=== PATIENT | female | born 1955 | race Caucasian/White ===

== ENCOUNTER 2024-05-26 10:47 | Emergency (ER) | payer OTHER, MEDICARE, SELFPAY ==
[2024-05-26 11:05] VITALS: BP 132/88; PULSE 89; RESP 16; TEMP 36.7; O2SAT 95; BMI 27.4
--- NOTE | 2024-05-26 13:49 | ED_ITS ---
HPI - Animal Bite 2 General: Chief Complaint: Animal Bite Stated Complaint: cat bite on left hand Time Seen by Provider: 05/26/24 13:46 Source: patient Mode of arrival: ambulatory Limitations: no limitations History of Present Illness: 69-year-old female states that couple da ys ago her cat and dog got in a fight she tried to break it up states that the cat it bit her on the left hand and 1 small bite on the right hand. States she has had some swelling and redness mainly to the left hand. She denies any fevers has had mild pain. She is up-to-date on her tetanus states the cat is up-to-date on its rabies. Associated symptoms: Deny chills, fever(s) or headache(s) Related Data Previous Rx's Medication Instructions Recorded amoxicillin 500 mg-potassium 1 tab PO BID #14 tabs 05/26/24 clavulanate 125 mg tablet (Augmentin) Allergies Allergy/AdvReac Type Severity Reaction Status Date / Time No Known Allergies Allergy Verified 05/26/24 11:10 Review of Systems 2 Const: Denies: fever(s), chills, body aches or change in appetite ENMT: Denies: throat pain or dental pain Card: Denies: chest pain Resp: Denies: dyspnea GI: Denies: abdominal pain, nausea, vomiting or diarrhea Musc: Reports: extremity pain and extremity swelling; Denies: neck pain or back pain Skin/Breast: Reports: erythema; Denies: rash Neuro: Denies: headache(s) Physical Exam 2 Const: COMMON NORMALS: no acute distress, patient oriented x3 and healthy appearing HENMT: COMMON NORMALS: normocephalic and atraumatic HEAD & SCALP: n ormocephalic and atraumatic Neck/C-Spine: COMMON NORMALS: full ROM and supple Chest: COMMONS NORMALS: normal inspection of the chest Resp: COMMON NORMALS: normal respiratory effort Cardio: COMMON NORMALS: regular rate, regular rhythm and No murmurs present (Cardio) RATE: regular rate RHYTHM: regular rhythm Extremity: COMMON NORMALS: full ROM OTHER: Cat bite noted to left hand with some mild erythema to dorsum of the hand no drainage slightly warm to touch she has full range of motion of her hand no swelling erythema to the palmar surface Neuro: COMMON NORMALS: patient oriented x3, moves all extremities and no focal motor deficits Psych: COMMON NORMALS: mental status grossly normal, Normal thought process present and cooperative THOUGHT PROCESS: Normal thought process present Course 2 Vital Signs: Vital signs: Vital Signs Temperature 98.1 F 05/26/24 11:05 Pulse Rate 70 05/26/24 14:05 Respiratory Rate 16 05/26/24 11:05 Blood Pressure 133/89 05/26/24 14:05 Pulse Oximetry 97 05/26/24 14:05 Oxygen Delivery Me thod Room Air 05/26/24 14:05 MDM - Animal Bite Medical Decision Making Patient presents with a cat bite she has a mild cellulitis no signs of any severe infection blood work here is normal did give her dose of [address] her on Augmentin she is follow-up with her PCP she is return if she has worsening erythema she understands agrees to plan Medical Records I reviewed the patient's medical records. Lab Data I reviewed the patient's lab results. 05/26/24 13:23 05/26/24 13:23 Laboratory Results WBC 9.05 10^3/uL (3.29-11.43) 05/26/24 13:23 RBC 4.97 10^6/uL (3.85-5.65) 05/26/24 13:23 Hgb 14.20 g/dL (11.27-16.99) 05/26/24 13:23 Hct 45.2 % (36-47) 05/26/24 13:23 MCV 90.9 fl (85-98) 05/26/24 13:23 MCH 28.6 pg (27-33) 05/26/24 13:23 MCHC 31.4 g/dL (30-55) 05/26/24 13:23 RDW 14.7 % (12.1-15.1) 05/26/24 13:23 Plt Count 293 10^3/cmm (157-399) 05/26/24 13:23 MPV 9.7 fL (7.4-10.4) 05/26/24 13:23 Neut % (Auto) 53.8 % 05/26/24 13:23 Lymph % (Auto) 38.1 % 05/26/24 13:23 Taylor % (Auto) 6.1 % 05/26/24 13:23 Eos % (Auto) 1.2 % 05/26/24 13:23 Baso % (Auto) 0.4 % 05/26/24 13:23 Neut # (Auto) 4.86 10^3/uL (1.8-7.7) 05/26/24 13:23 Lymph # (Auto) 3.5 10^3/uL (0.8-4.8) 05/26/24 13:23 Taylor # (Auto) 0.6 10^3/uL (0.2-0.9) 05/26/24 13:23 Eos # (Auto) 0.1 10^3/uL (0.0-0.8) 05/26/24 13:23 Baso # (Auto) 0.0 10^3/uL (0.0-0.1) 05/26/24 13:23 Nucleated RBC % (auto) 0 % 05/26/24 13:23 Nucleated RBCs # 0.0 /100WBC 05/26/24 13:23 ESR 17 mm/hr (0-15) H 05/26/24 13:23 Sodium 140 mmol/L (136-145) 05/26/24 13:23 Potassium 4.2 mmol/L (3.5-5.1) 05/26/24 13:23 Chloride 103 mmol/L (98-107) 05/26/24 13:23 Carbon Dioxide 25 mmol/L (22-29) 05/26/24 13:23 Anion Gap 16.2 (5-19) 05/26/24 13:23 BUN 15 mg/dL (8-23) 05/26/24 13:23 Creatinine 0.7 mg/dL (0.5-0.9) 05/26/24 13:23 GFR Calculation 83.0 mL/min (90-130) L 05/26/24 13:23 Glucose 90 mg/dL (65-115) 05/26/24 13:23 Calculated Osmolality 290 mOsm/kg (285-295) 05/26/24 13:23 Calcium 9.5 mg/dL (8.5-10.5) 05/26/24 13:23 Total Bilirubin 0.6 mg/dL (0.15-1.2) 05/26/24 13:23 AST 25 U/L (0-32) 05/26/24 13:23 ALT 17 U/L (0-33) 05/26/24 13:23 Alkaline Phosphatase 161 U/L (35-105) H 05/26/24 13:23 C-Reactive Protein 11.4 mg/L (0.0-4.9) H 05/26/24 13:23 Total Protein 7.8 g/dL (6.6-8.7) 05/26/24 13:23 Albumin 4.3 g/dL (3.5-5.2) 05/26/24 13:23 Globulin 3.5 g/dL (1.3-4.6) 05/26/24 13:23 All radiology interpretation(s) finalized by discharge Discharge Plan Discharge Patient Disposition: Home Clinical Impression: Cat bite, Cellulitis Condition: Stable Prescriptions: New Augmentin 500-125 mg tablet 1 tab PO BID Qty: 14 0RF Discharge Orders: Discharge ED (Routine); Ordered 05/26/24 Ordered By: Evaristo Duke Discharge Diet: Advance as tolerated Discharge Activity: Resume usual activity Patient Instructions: Animal Bite (ED), Cellulitis (ED) Coding Level of Care Code ED [facility] [employer] 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
[2024-05-26 13:50] LABS: Basophils % 0.4 %; Eosinophils # 0.1 10^3/uL (0.0-0.8); Eosinophils % 1.2 %; Hematocrit 45.2 % (36-47); Lymphocytes # 3.5 10^3/uL (0.8-4.8); Lymphocytes % 38.1 %; Mean Corpuscular HGB Conc 31.4 g/dL (30-55); Mean Corpuscular Hemoglobin 28.6 pg (27-33); Mean Corpuscular Volume 90.9 fl (85-98); Mean Platelet Volume 9.7 fL (7.4-10.4); Monocytes # 0.6 10^3/uL (0.2-0.9); Monocytes % 6.1 %; Neutrophils # 4.86 10^3/uL (1.8-7.7); Neutrophils % 53.8 %; Nucleated Red Blood Cells % 0 %; Platelet Count 293 10^3/cmm (157-399); Red Blood Count 4.97 10^6/uL (3.85-5.65); Red Cell Distribution Width 14.7 % (12.1-15.1); White Blood Count 9.05 10^3/uL (3.29-11.43)
[2024-05-26 13:55] LABS: Erythrocyte Sedimentation Rate 17 mm/hr (0-15)
[2024-05-26 14:05] VITALS: BP 133/89; PULSE 70; O2SAT 97
[2024-05-26 14:05] LABS: Alanine Aminotransferase 17 U/L (0-33); Albumin Level 4.3 g/dL (3.5-5.2); Alkaline Phosphatase 161 U/L (35-105); Anion Gap 16.2 (5-19); Aspartate Amino Transferase 25 U/L (0-32); Blood Urea Nitrogen 15 mg/dL (8-23); C Reactive Protein 11.4 mg/L (0.0-4.9); Calcium 9.5 mg/dL (8.5-10.5); Carbon Dioxide 25 mmol/L (22-29); Chloride 103 mmol/L (98-107); Creatinine Clr Calc Pharmacy 76.9747; Globulin 3.5 g/dL (1.3-4.6); Glucose 90 mg/dL (65-115); Osmolality Calculated 290 mOsm/kg (285-295); Potassium 4.2 mmol/L (3.5-5.1); Sodium 140 mmol/L (136-145); Total Bilirubin 0.6 mg/dL (0.15-1.2); Total Protein 7.8 g/dL (6.6-8.7)
[2024-05-26] MEDS: vancomycin 1,000 MG in sodium chloride 0.9% 250 ML 250 MG IV (14:12)
[2024-05-26 14:39] VITALS: BP 117/68; PULSE 78; O2SAT 94
[2024-05-26 15:30] VITALS: BP 137/91; PULSE 81; O2SAT 94
== END 2024-05-26 15:30 | disposition home or self-care (01) ==
PROVIDERS: Emergency Provider Emergency Medicine
DX: S61.452A Open bite of left hand, initial encounter (principal); L03.114 Cellulitis of left upper limb; W55.01XA Bitten by cat, initial encounter
CPT/HCPCS: 36415; 80053; 85025; 85651; 86140; 96365; 99284; J3370; J7050